=== PATIENT | female | born 1985 | race Asian ===

== ENCOUNTER 2016-11-08 08:19 | Outpatient (CLI) | payer OTHER ==
[2016-11-08 08:55] LABS: BASOPHILS % (AUTO) 0.6 % (0.0-2.0); EOSINOPHILS # (AUTO) 0.1 K/uL (0-0.4); EOSINOPHILS % (AUTO) 1.4 % (0.0-4.0); HEMATOCRIT 37.8 % (36-48); HEMOGLOBIN 11.9 g/dL (12.0-16.0); LYMPHOCYTES # (AUTO) 0.7 K/uL (2.5-16.5); LYMPHOCYTES % (AUTO) 16.2 % (20.5-51.1); MEAN CORPUSCULAR HEMOGLOBIN 28 pg (27-31); MEAN CORPUSCULAR HGB CONC 32 g/dL (33-37); MEAN CORPUSCULAR VOLUME 88 fL (80-94); MONOCYTES # (AUTO) 0.3 K/uL (0.8-1.0); MONOCYTES % (AUTO) 5.9 % (1.7-9.3); NEUTROPHILS # (AUTO) 3.5 K/uL (1.8-7.7); NEUTROPHILS % (AUTO) 75.9 % (42.2-75.2); PLATELET COUNT (AUTO) 288 K/uL (140-450); RED BLOOD CELL COUNT(AUTO) 4.28 MIL/uL (4.20-5.40); RED CELL DISTRIBUTION WIDTH 13.5 % (11.6-13.7); WHITE BLOOD COUNT (AUTO) 4.6 K/uL (4.8-10.8)
[2016-11-08 10:09] LABS: ALBUMIN 3.7 g/dL (3.4-5.0); ANION GAP 9.3 (8-16); BILIRUBIN,DIRECT 0.1 mg/dL (0.0-0.3); CARBON DIOXIDE 30.3 mmol/L (21-32); CHOL/HDL RATIO 2.5 (1-4.5); CREATININE 0.6 mg/dL (0.6-1.3); POTASSIUM 3.6 mmol/L (3.5-5.1); TOTAL BILIRUBIN 0.2 mg/dL (0.0-1.0); TOTAL PROTEIN, SERUM 7.3 g/dL (6.4-8.2)
== END 2016-11-08 22:31 | disposition home or self-care (01) ==
LOC: MLB 08:19
PROVIDERS: ATTEND Internal Medicine
DX: Z00.00 Encounter for general adult medical examination without abnormal findings (principal)
CPT/HCPCS: 36415; 80053; 82248; 82306; 85025

== ENCOUNTER 2017-07-25 14:16 | Observation (INO) | payer OTHER ==
[~2017-07-25] VITALS: Ht 157.5 cm; Wt 60.3 kg
[2017-07-25 15:37] LABS: BILIRUBIN,URINE NEGATIVE (NEGATIVE); BLOOD, URINE NEGATIVE (NEGATIVE); COLOR,URINE YELLOW (YELLOW); LEUKOCYTE ESTERASE ,URINE NEGATIVE (NEGATIVE); NITRITE, URINE NEGATIVE (NEGATIVE); UGLUCOSE 3+ (NEGATIVE)
[2017-07-25 16:00] LABS: APPEARANCE,URINE CLEAR (CLEAR)
== END 2017-07-25 19:00 | disposition home or self-care (01) ==
LOC: MLD 14:16
PROVIDERS: ADMIT Obstetrics & Gynecology; ATTEND Obstetrics & Gynecology
DX: O46.93 Antepartum hemorrhage, unspecified, third trimester (principal); Z3A.37 37 weeks gestation of pregnancy
CPT/HCPCS: 76805; 81003; G0378; Q0092

== ENCOUNTER 2017-08-01 10:20 | Observation (INO) | payer OTHER ==
[~2017-08-01] VITALS: Ht 157.5 cm; Wt 60.8 kg
[2017-08-01] MEDS ORDERED: PREN-380 PO (10:54)
[2017-08-01] MEDS ORDERED: FERR325E14 PO (10:54)
[2017-08-01 13:26] VITALS: BP 125/79
[2017-08-03] MEDS ORDERED: PREN-380 PO (15:52)
[2017-08-03] MEDS ORDERED: FERR-212 PO (15:53)
[2017-08-04] MEDS ORDERED: METOCLOPRAMIDE 10 MG/2 ML INJ VIAL IVP PRN (01:40)
[2017-08-04] MEDS ORDERED: MORPHINE SULFATE 4 MG/ML SYR IVP PRN ×2 (01:40)
[2017-08-04] MEDS ORDERED: MIDAZOLAM 2 MG/2 ML VIAL IV PRN (01:40)
[2017-08-04] MEDS ORDERED: MORPHINE SULFATE 2 MG/ML SYR IVP PRN (01:40)
== END 2017-08-01 12:31 | disposition home or self-care (01) ==
LOC: MFCC 10:20
PROVIDERS: ADMIT Obstetrics & Gynecology; ATTEND Obstetrics & Gynecology
DX: O26.893 Other specified pregnancy related conditions, third trimester (principal); R10.9 Unspecified abdominal pain; Z3A.39 39 weeks gestation of pregnancy
CPT/HCPCS: 59025; 76815; 81000; G0378; Q0092

== ENCOUNTER 2017-12-16 08:18 | Outpatient (CLI) | payer OTHER ==
[~2017-12-16 08:18] MED LIST: FERR-212 PO; FERR325E14 PO; PREN-380 PO
[2017-12-16 09:07] LABS: BASOPHILS % (AUTO) 0.4 % (0.0-2.0); EOSINOPHILS % (AUTO) 0.8 % (0.0-4.0); HEMOGLOBIN 13.2 g/dL (12.0-16.0); LYMPHOCYTES # (AUTO) 1.4 K/uL (2.5-16.5); LYMPHOCYTES % (AUTO) 34.5 % (20.5-51.1); MEAN CORPUSCULAR HEMOGLOBIN 29 pg (27-31); MEAN CORPUSCULAR HGB CONC 33 g/dL (33-37); MEAN CORPUSCULAR VOLUME 89.2 fL (80-94); MONOCYTES # (AUTO) 0.3 K/uL (0.8-1.0); MONOCYTES % (AUTO) 6.6 % (1.7-9.3); NEUTROPHILS # (AUTO) 2.3 K/uL (1.8-7.7); NEUTROPHILS % (AUTO) 57.7 % (42.2-75.2); PLATELET COUNT (AUTO) 236 K/uL (140-450); RED BLOOD CELL COUNT(AUTO) 4.49 MIL/uL (4.20-5.40); RED CELL DISTRIBUTION WIDTH 14.5 % (11.6-13.7)
[2017-12-16 09:41] LABS: ALBUMIN 3.9 g/dL (3.4-5.0); ANION GAP 12.3 (8-16); CARBON DIOXIDE 28.3 mmol/L (21-32); CHOL/HDL RATIO 2.7 (1-4.5); CREATININE 0.5 mg/dL (0.6-1.3); POTASSIUM 4.6 mmol/L (3.5-5.1); TOTAL BILIRUBIN 0.4 mg/dL (0.0-1.0)
== END 2017-12-16 23:11 | disposition home or self-care (01) ==
LOC: MLB 08:18
PROVIDERS: ATTEND Internal Medicine
DX: Z00.01 Encounter for general adult medical examination with abnormal findings (principal); R79.89 Other specified abnormal findings of blood chemistry
CPT/HCPCS: 36415; 80053; 84436; 84443; 85025

== ENCOUNTER 2018-09-25 11:34 | Observation (INO) | payer OTHER ==
[~2018-09-25] VITALS: Ht 160 cm; Wt 55.3 kg
[2018-09-25 15:25] VITALS: BP 115/57
== END 2018-09-25 14:00 | disposition home or self-care (01) ==
LOC: MLD 11:34
PROVIDERS: ADMIT Obstetrics & Gynecology; ATTEND Obstetrics & Gynecology
DX: O20.0 Threatened abortion (principal)
CPT/HCPCS: 36415; 84702; G0378

== ENCOUNTER 2018-09-29 11:17 | Outpatient (CLI) | payer OTHER | END 2018-09-29 20:34 | disposition home or self-care (01) | LOC: MLB 11:17 | PROVIDERS: ATTEND Obstetrics & Gynecology | DX: O20.0 Threatened abortion (principal); Z3A.08 8 weeks gestation of pregnancy | CPT/HCPCS: 36415; 84702 ==

== ENCOUNTER 2018-10-02 06:13 | Emergency (ER) | payer OTHER ==
[~2018-10-02] VITALS: Ht 160 cm; Wt 54.4 kg
[2018-10-02 06:18] VITALS: BP 130/86
--- NOTE | 2018-10-02 06:30 | NUR ---
PT AMBULATED TO BED #1 PT WAS ABLE TO USE THE RESTROOM AND GIVE A URINE SAMPLE. SAMPLE COLLECTED AND SENT TO LAB.
--- NOTE | 2018-10-02 06:35 | NUR ---
PATIENT PRESENTS ER WITH C/O VAG BLEEDING AND CRAMPING X 2 WEEKS. PT STATED THAT SHE STARTED HAVING A HEAVIER BLEED, 1/2 A PAD AN HOUR AND HAS CRAMPING FROM SUPRAPUBIC RADIATING TO THE BACK.PATIENT STATES PAIN OF 5/10 AT THIS TIME PT IS A/O X4.PT IS . PT STATED THAT DR. DUNN FROM [facility] HAS SEEN HER AND TESTED HER HCG LEVEL 2 TIMES. THE SECOND LAB RESULT WAS INCREASING;PT LMP WAS IN . PT STATES SHE IS 9 WEEKS .PT EXPECTED DATE OF DELIVERY IS . VSS; PATIENT POSITIONED FOR COMFORT; HOB ELEVATED; BEDRAILS UP X2; BED DOWN. ER MD MADE AWARE OF PT STATUS.
[2018-10-02 06:47] LABS: BASOPHILS % (AUTO) 0.2 % (0.0-2.0); EOSINOPHILS % (AUTO) 0.4 % (0.0-4.0); HEMATOCRIT 40.8 % (36-48); HEMOGLOBIN 13.5 g/dL (12.0-16.0); LYMPHOCYTES # (AUTO) 1.8 K/uL (2.5-16.5); LYMPHOCYTES % (AUTO) 17.3 % (20.5-51.1); MEAN CORPUSCULAR HEMOGLOBIN 30 pg (27-31); MEAN CORPUSCULAR HGB CONC 33 g/dL (33-37); MEAN CORPUSCULAR VOLUME 90.4 fL (80-94); MONOCYTES # (AUTO) 0.4 K/uL (0.8-1.0); MONOCYTES % (AUTO) 3.8 % (1.7-9.3); NEUTROPHILS % (AUTO) 78.3 % (42.2-75.2); PLATELET COUNT (AUTO) 263 K/uL (140-450); RED BLOOD CELL COUNT(AUTO) 4.51 MIL/uL (4.20-5.40); RED CELL DISTRIBUTION WIDTH 13.4 % (11.6-13.7); WHITE BLOOD COUNT (AUTO) 10.2 K/uL (4.8-10.8)
--- NOTE | 2018-10-02 06:50 | NUR ---
U/A WAS COLLECTED AND SENT TO LAB
[2018-10-02 06:57] LABS: BILIRUBIN,URINE NEGATIVE (NEGATIVE); BLOOD, URINE 3+ (NEGATIVE); LEUKOCYTE ESTERASE ,URINE NEGATIVE (NEGATIVE); NITRITE, URINE NEGATIVE (NEGATIVE); PH,URINE 7.5 (5.0-9.0); UGLUCOSE NEGATIVE (NEGATIVE)
[2018-10-02 06:58] LABS: APPEARANCE,URINE HAZY (CLEAR); COLOR,URINE SLIGHT BLOODY (YELLOW)
[2018-10-02 07:01] LABS: RBC,URINE >100 /HPF (0-5); WBC,URINE 0-5 (RARE) /HPF (0-5)
--- NOTE | 2018-10-02 07:11 | NUR ---
ABORH RESULTS 0POSITIVE. MADE AWARE
--- NOTE | 2018-10-02 07:14 | NUR ---
GAVE REPORT TO ARSALAN RN , PT VSS
--- NOTE | 2018-10-02 07:37 | NUR ---
PATIENT AWAKE/ALERT/ORIENTED. STILL HAVING ABD. CRAMPING 02/17, MINIMAL VAGI. BLEEDING.SANITARY PADS PROVIDED. AT BEDSIDE. ERMD MADE AWARE OF ABD. CRAMPING. CONTINUE TO MONITOR
[2018-10-02] MEDS ORDERED: ACETAMINOPHEN EXTRA STRENGTH 500 MG TAB PO ONE (07:50)
[2018-10-02] MEDS ORDERED: ALBUTEROL SULFATE/IPRATROPIU 3 ML SOL IH ONE (07:50)
--- NOTE | 2018-10-02 08:13 | NUR ---
medicated for abd. cramping
--- NOTE | 2018-10-02 08:14 | NUR ---
resp. tx in progress
[2018-10-02 09:10] VITALS: BP 110/62
--- NOTE | 2018-10-02 09:10 | NUR ---
Patient discharged with v/s stable. Written and verbal after care instructions given and explained. Patient verbalized understanding. Ambulatory with steady gait. All questions addressed prior to discharge. Advised to follow up with PMD.
== END 2018-10-02 09:10 | disposition home or self-care (01) ==
LOC: MED 06:13
DX: O20.0 Threatened abortion (principal); Z79.899 Other long term (current) drug therapy; Z3A.09 9 weeks gestation of pregnancy
CPT/HCPCS: 36415; 76817; 81001; 81025; 84702; 85025; 86900; 86901; 94640; 99284; J7620; Q0092

== ENCOUNTER 2018-10-09 12:28 | Outpatient (CLI) | payer OTHER ==
[2018-10-09 12:46] LABS: BASOPHILS % (AUTO) 0.3 % (0.0-2.0); EOSINOPHILS % (AUTO) 0.5 % (0.0-4.0); HEMATOCRIT 39.1 % (36-48); HEMOGLOBIN 12.9 g/dL (12.0-16.0); LYMPHOCYTES # (AUTO) 1.3 K/uL (2.5-16.5); LYMPHOCYTES % (AUTO) 28.5 % (20.5-51.1); MEAN CORPUSCULAR HEMOGLOBIN 30 pg (27-31); MEAN CORPUSCULAR HGB CONC 33 g/dL (33-37); MEAN CORPUSCULAR VOLUME 90.6 fL (80-94); MONOCYTES # (AUTO) 0.3 K/uL (0.8-1.0); MONOCYTES % (AUTO) 5.8 % (1.7-9.3); NEUTROPHILS % (AUTO) 64.9 % (42.2-75.2); PLATELET COUNT (AUTO) 261 K/uL (140-450); RED BLOOD CELL COUNT(AUTO) 4.32 MIL/uL (4.20-5.40); RED CELL DISTRIBUTION WIDTH 13.1 % (11.6-13.7); WHITE BLOOD COUNT (AUTO) 4.6 K/uL (4.8-10.8)
== END 2018-10-09 19:22 | disposition home or self-care (01) ==
LOC: MLB 12:28
PROVIDERS: ATTEND Internal Medicine
DX: O03.6 Delayed or excessive hemorrhage following complete or unspecified spontaneous abortion (principal); D64.9 Anemia, unspecified; Z3A.00 Weeks of gestation of pregnancy not specified
CPT/HCPCS: 36415; 84702; 85025

== ENCOUNTER 2018-10-23 14:45 | Outpatient (CLI) | payer OTHER | END 2018-10-23 20:16 | disposition home or self-care (01) | LOC: MLB 14:45 | PROVIDERS: ATTEND Obstetrics & Gynecology | DX: O20.0 Threatened abortion (principal); Z3A.09 9 weeks gestation of pregnancy | CPT/HCPCS: 36415; 84702 ==

== ENCOUNTER 2019-02-12 11:34 | Outpatient (CLI) | payer OTHER | END 2019-02-12 21:24 | disposition home or self-care (01) | LOC: MUS 11:34 | PROVIDERS: ATTEND Obstetrics & Gynecology | DX: O26.891 Other specified pregnancy related conditions, first trimester (principal); Z3A.11 11 weeks gestation of pregnancy | CPT/HCPCS: 76801 ==

== ENCOUNTER 2019-06-09 10:35 | Outpatient (CLI) | payer OTHER ==
[2019-06-09 11:20] LABS: BASOPHILS % (AUTO) 0.1 % (0.0-2.0); EOSINOPHILS % (AUTO) 0.4 % (0.0-4.0); HEMATOCRIT 34.9 % (36-48); HEMOGLOBIN 11.5 g/dL (12.0-16.0); LYMPHOCYTES # (AUTO) 1.1 K/uL (2.5-16.5); LYMPHOCYTES % (AUTO) 15.8 % (20.5-51.1); MEAN CORPUSCULAR HEMOGLOBIN 31 pg (27-31); MEAN CORPUSCULAR HGB CONC 33 g/dL (33-37); MEAN CORPUSCULAR VOLUME 94.6 fL (80-94); MONOCYTES # (AUTO) 0.4 K/uL (0.8-1.0); MONOCYTES % (AUTO) 5.3 % (1.7-9.3); NEUTROPHILS # (AUTO) 5.7 K/uL (1.8-7.7); NEUTROPHILS % (AUTO) 78.4 % (42.2-75.2); PLATELET COUNT (AUTO) 240 K/uL (140-450); RED BLOOD CELL COUNT(AUTO) 3.69 MIL/uL (4.20-5.40); RED CELL DISTRIBUTION WIDTH 12.8 % (11.6-13.7); WHITE BLOOD COUNT (AUTO) 7.2 K/uL (4.8-10.8)
[2019-06-09 13:38] LABS: GLUCOSE,FASTING GESTATIONAL 84 mg/dL (70-110)
== END 2019-06-09 20:09 | disposition home or self-care (01) ==
LOC: MLB 10:35
PROVIDERS: ATTEND Obstetrics & Gynecology
DX: Z34.93 Encounter for supervision of normal pregnancy, unspecified, third trimester (principal); Z3A.38 38 weeks gestation of pregnancy
CPT/HCPCS: 36415; 76805; 82951; 83036; 85025; Q0092

== ENCOUNTER 2019-08-27 06:53 | Inpatient (IN) | payer OTHER ==
[~2019-08-27] VITALS: Ht 160 cm; Wt 62.6 kg
[2019-08-27] MEDS ORDERED: LACTATED RINGERS 1,000 ML IV SCH (07:20)
--- NOTE | 2019-08-27 08:15 | NUR ---
PATIENT HAS BEEN SCREENED AND CATEGORIZED LOW NUTRITION RISK. PATIENT WILL BE SEEN WITHIN 7 DAYS OF ADMISSION. 09/02/[address]
[2019-08-27 08:47] LABS: BASOPHILS % (AUTO) 0.1 % (0.0-2.0); EOSINOPHILS % (AUTO) 0.4 % (0.0-4.0); HEMATOCRIT 35.5 % (36-48); HEMOGLOBIN 11.7 g/dL (12.0-16.0); LYMPHOCYTES # (AUTO) 1.1 K/uL (2.5-16.5); MEAN CORPUSCULAR HEMOGLOBIN 30 pg (27-31); MEAN CORPUSCULAR HGB CONC 33 g/dL (33-37); MONOCYTES # (AUTO) 0.5 K/uL (0.8-1.0); MONOCYTES % (AUTO) 7.5 % (1.7-9.3); PLATELET COUNT (AUTO) 180 K/uL (140-450); RED BLOOD CELL COUNT(AUTO) 3.86 MIL/uL (4.20-5.40); WHITE BLOOD COUNT (AUTO) 6.6 K/uL (4.8-10.8)
[2019-08-27 08:49] LABS: APPEARANCE,URINE SL CLOUDY (CLEAR); BILIRUBIN,URINE NEGATIVE (NEGATIVE); BLOOD, URINE NEGATIVE (NEGATIVE); COLOR,URINE YELLOW (YELLOW); LEUKOCYTE ESTERASE ,URINE NEGATIVE (NEGATIVE); NITRITE, URINE NEGATIVE (NEGATIVE); UGLUCOSE TRACE (NEGATIVE)
[2019-08-27 09:00] LABS: CALCIUM OXALATE CRYSTALS,UR 0-10 /HPF (None Seen); RBC,URINE 0-5 /HPF (0-5); WBC,URINE 0-5 /HPF (0-5)
[2019-08-27] MEDS ORDERED: ONDANSETRON 4 MG/2 ML VIAL ONE (10:10)
[2019-08-27] MEDS ORDERED: PROPOFOL 200 MG/20 ML VIAL IV ONE (10:10)
[2019-08-27 10:31] VITALS: BP 113/74
[2019-08-27] MEDS ORDERED: INFLUENZA VACCINE QUAD 0.5 ML SYR IMVAC PRN (10:35)
[2019-08-27] MEDS ORDERED: ONDANSETRON 4 MG/2 ML VIAL IVP PRN ×2 (11:45)
[2019-08-27] MEDS ORDERED: NALBUPHINE 10 MG/ML AMP IVP PRN (11:45)
[2019-08-27] MEDS ORDERED: OXYTOCIN 20 UNITS in LACTATED RINGERS 1,000 ML IV SCH (11:45)
[2019-08-27] MEDS ORDERED: HYDROmorphone 1 MG/ML AMP IVP PRN ×2 (11:45→13:25)
[2019-08-27] MEDS ORDERED: MEPERIDINE 25 MG/ML SYR IVP PRN (11:45)
[2019-08-27] MEDS ORDERED: NALOXONE 0.4 MG/ML VIAL IVP PRN ×3 (11:45)
[2019-08-27] MEDS ORDERED: diphenhydrAMINE 50 MG/ML VIAL IVP PRN ×2 (11:45)
[2019-08-27] MEDS ORDERED: OXYTOCIN 20 UNITS/LR PREMIX 1,000 ML IV ONE (12:38)
[2019-08-27] MEDS ORDERED: MEASLES, MUMPS, AND RUBELLA 1 VIAL SQVAC PRN (13:25)
[2019-08-27] MEDS ORDERED: KETOROLAC 30 MG/ML VIAL IVP PRN (14:00)
[2019-08-27] MEDS: KETOROLAC 30 MG/ML VIAL IM/IVP SCH (17:53)
[2019-08-27] MEDS: OXYTOCIN 20 UNITS in LACTATED RINGERS 1,000 ML IV SCH (20:15)
[2019-08-28] MEDS: OXYTOCIN 20 UNITS in LACTATED RINGERS 1,000 ML IV SCH (05:15)
[2019-08-28] MEDS: KETOROLAC 30 MG/ML VIAL IM/IVP SCH ×3 (06:00→09:04)
[2019-08-28] MEDS ORDERED: BISACODYL 5 MG TABEC PO SCH (09:00)
[2019-08-28 10:43] LABS: BASOPHILS % (AUTO) 0.1 % (0.0-2.0); EOSINOPHILS % (AUTO) 0.1 % (0.0-4.0); HEMATOCRIT 32.7 % (36-48); HEMOGLOBIN 10.8 g/dL (12.0-16.0); LYMPHOCYTES # (AUTO) 0.8 K/uL (2.5-16.5); LYMPHOCYTES % (AUTO) 6.8 % (20.5-51.1); MEAN CORPUSCULAR HEMOGLOBIN 30 pg (27-31); MEAN CORPUSCULAR HGB CONC 33 g/dL (33-37); MEAN CORPUSCULAR VOLUME 90.3 fL (80-94); MONOCYTES # (AUTO) 0.6 K/uL (0.8-1.0); MONOCYTES % (AUTO) 4.8 % (1.7-9.3); NEUTROPHILS # (AUTO) 10.3 K/uL (1.8-7.7); NEUTROPHILS % (AUTO) 88.2 % (42.2-75.2); PLATELET COUNT (AUTO) 170 K/uL (140-450); RED BLOOD CELL COUNT(AUTO) 3.62 MIL/uL (4.20-5.40); RED CELL DISTRIBUTION WIDTH 14.9 % (11.6-13.7); WHITE BLOOD COUNT (AUTO) 11.7 K/uL (4.8-10.8)
[2019-08-28] MEDS ORDERED: KETOROLAC 30 MG/ML VIAL IVP PRN (18:00)
[2019-08-28] MEDS ORDERED: ACETAMINOPHEN 325 MG TAB PO PRN (22:00)
[2019-08-29] MEDS: SIMETHICONE 80 MG TAB.CHEW PO SCH ×3 (08:41→17:58)
[2019-08-29] MEDS: DOCUSATE SODIUM 100 MG GELCAP PO SCH (08:41)
[2019-08-29] MEDS ORDERED: SODIUM PHOSPHATE 118 ML ENEM RC PRN (09:00)
[2019-08-29] MEDS: IBUPROFEN 600 MG TAB PO PRN ×2 (13:06→17:58)
[2019-08-30] MEDS: IBUPROFEN 600 MG TAB PO PRN ×2 (04:32→12:42)
[2019-08-30] MEDS: DOCUSATE SODIUM 100 MG GELCAP PO SCH (09:00)
[2019-08-30] MEDS: SIMETHICONE 80 MG TAB.CHEW PO SCH ×2 (09:00→12:42)
[2019-08-30] MEDS ORDERED: FERR325E14 PO (14:05)
[2019-08-30] MEDS ORDERED: IBUP-1842 PO (14:13)
== END 2019-08-30 15:35 | disposition home or self-care (01) | DRG 788 ==
LOC: MLD 06:53 → EEVIPCON 06:53 → MFCC 11:20
PROVIDERS: ADMIT Obstetrics & Gynecology; ATTEND Obstetrics & Gynecology
PROC: 10D00Z1 Extraction of Products of Conception, Low, Open Approach (ICD-10-PCS; principal; 2019-08-27 10:30)
DX: O34.211 Maternal care for low transverse scar from previous cesarean delivery (principal); O34.13 Maternal care for benign tumor of corpus uteri, third trimester; O69.81X0 Labor and delivery complicated by cord around neck, without compression, not applicable or unspecified; Z37.0 Single live birth; D25.9 Leiomyoma of uterus, unspecified; Z3A.39 39 weeks gestation of pregnancy
CPT/HCPCS: 36415; 81001; 85025; 86592; 86886; 86900; 86901; 87081; 87086; J0690; J1200; J1885; J2405; J2590; J2704; J7060; J7120

== ENCOUNTER 2020-03-31 08:21 | Outpatient (CLI) | payer OTHER ==
[~2020-03-31 08:21] MED LIST changes: -FERR-212 PO; +IBUP-1842 PO
[2020-03-31 08:48] LABS: BASOPHILS % (AUTO) 0.3 % (0.0-2.0); EOSINOPHILS % (AUTO) 0.5 % (0.0-4.0); HEMATOCRIT 40.1 % (36-48); HEMOGLOBIN 13.3 g/dL (12.0-16.0); LYMPHOCYTES # (AUTO) 1.2 K/uL (2.5-16.5); LYMPHOCYTES % (AUTO) 22.7 % (20.5-51.1); MEAN CORPUSCULAR HEMOGLOBIN 30 pg (27-31); MEAN CORPUSCULAR HGB CONC 33 g/dL (33-37); MEAN CORPUSCULAR VOLUME 91.3 fL (80-94); MONOCYTES # (AUTO) 0.3 K/uL (0.8-1.0); MONOCYTES % (AUTO) 4.9 % (1.7-9.3); NEUTROPHILS # (AUTO) 3.8 K/uL (1.8-7.7); NEUTROPHILS % (AUTO) 71.6 % (42.2-75.2); PLATELET COUNT (AUTO) 255 K/uL (140-450); RED BLOOD CELL COUNT(AUTO) 4.39 MIL/uL (4.20-5.40); RED CELL DISTRIBUTION WIDTH 12.8 % (11.6-13.7); WHITE BLOOD COUNT (AUTO) 5.3 K/uL (4.8-10.8)
[2020-03-31 13:13] LABS: ALBUMIN 4.1 g/dL (3.4-5.0); ANION GAP 16.2 (8-16); CARBON DIOXIDE 24.4 mmol/L (21-32); CHOL/HDL RATIO 3.1 (1-4.5); CREATININE 0.6 mg/dL (0.6-1.3); POTASSIUM 4.6 mmol/L (3.5-5.1); TOTAL BILIRUBIN 0.6 mg/dL (0.0-1.0)
[2020-03-31 21:31] LABS: ALBUMIN 4.3 g/dL (3.4-5.0); BILIRUBIN,DIRECT 0.1 mg/dL (0.0-0.3); TOTAL BILIRUBIN 0.6 mg/dL (0.0-1.0)
== END 2020-03-31 20:57 | disposition home or self-care (01) ==
LOC: MLB 08:21
PROVIDERS: ATTEND Internal Medicine
DX: Z00.00 Encounter for general adult medical examination without abnormal findings (principal)
CPT/HCPCS: 36415; 80053; 80076; 85025

== ENCOUNTER 2022-01-18 21:13 | Emergency (ER) | payer OTHER ==
[~2022-01-18] VITALS: Ht 157.5 cm; Wt 59.0 kg
[2022-01-18 21:24] VITALS: BP 133/93
--- NOTE | 2022-01-18 21:42 | NUR ---
PATIENT TO LOBBY
--- NOTE | 2022-01-18 22:16 | NUR ---
PATIENT AMBULATED TO BED 6
--- NOTE | 2022-01-18 22:30 | NUR ---
36/F BIB SELF C/O HITTING HEAD ON GLASS MIRROR. PATIENT STATED THAT SHE IS EXPERIENCING A THROBBING HEADACHE AND PAIN IN THE JEHOVAH'S WITNESS 7/10 WHEN SHE MOVES. DENIES TAKING PAIN MEDICATION PRIOR TO ARRIVAL, AND ICE THE AREA. PATIENT ON BLOOD THINNER- ELIQUIS 5MG. DENIES LOC. HAS NAUSEA. PATIENT HAS SWELLING AT THE SITE, THROBBING AND SOME REDNESS. RR EVEN AND UNLABORED. NO SIGNS OF DISTRESS. PATIENT DNEIES CP/SOB/N/V/D/C AT THIS TIME. PATIENT PLACED IN A GOWN. BED LOW AND LOCKED. SIDE RAIL UP FOR SAFETY. PATIENT AAOX4 AND AMBULATORY. PMHX BREAST CANCER 2020, BLOOD CLOT IN JUGULAR, MASECTOMY TO THE LEFT MEDS NIRAJ LAMAR
--- NOTE | 2022-01-18 23:07 | NUR ---
PATIENT RETURNED FROM CT VIA W/C.
--- NOTE | 2022-01-19 00:45 | NUR ---
MD WASHBURN AT BEDSIDE
[2022-01-19 00:50] VITALS: BP 122/78
--- NOTE | 2022-01-19 00:50 | NUR ---
Patient discharged with v/s stable. Written and verbal after care instructions given and explained by MD Castro. Patient verbalized understanding. Ambulatory with steady gait. Advised to follow up with PMD.
== END 2022-01-19 00:46 | disposition home or self-care (01) ==
LOC: MED 21:13
DX: S09.90XA Unspecified injury of head, initial encounter (principal); Z79.899 Other long term (current) drug therapy; Z85.3 Personal history of malignant neoplasm of breast; Z98.890 Other specified postprocedural states; W22.8XXA Striking against or struck by other objects, initial encounter; Y93.89 Activity, other specified; Y92.89 Other specified places as the place of occurrence of the external cause; Y99.8 Other external cause status
CPT/HCPCS: 70450; 99284